=== PATIENT | female | born 1970 | race American Indian/Alaskan Native ===

== ENCOUNTER 2016-06-10 07:53 | Outpatient (CLI) | payer MEDICAID ==
--- NOTE | 2016-06-10 10:43 | Cat Scan Report ---
CT SINUSES WITHOUT CONTRAST INDICATION: Nasal congestion. COMPARISON: None similar at this institution. FINDINGS: Noncontrast sinus CT demonstrates hypoplastic frontal sinuses, right more the left. Clear remainder aerated paranasal sinuses and mastoid air cells. Slight nasal septal deviation. Soft tissue bridging of the right middle and inferior turbinates incidentally noted as on coronal image 27. Normal eye globes. Unremarkable imaged intracranial appearance. Mild cervical spondylosis. CONCLUSION: No sinusitis with few incidental findings, as above. Thank you for the opportunity to participate in this patient's care.
== END 2016-06-10 07:54 | disposition home or self-care (01) ==
LOC: CT 07:53
PROVIDERS: ATTEND Otolaryngology
DX: R09.81 Nasal congestion (principal); J34.2 Deviated nasal septum; M47.892 Other spondylosis, cervical region
CPT/HCPCS: 70486

== ENCOUNTER 2018-05-26 11:22 | Observation (INO) | payer MEDICAID ==
[2018-05-22 10:38] LABS: Basophils % (Auto) 0.8 % (0.0-1.8); Eosinophils % (Auto) 0.3 % (0.0-4.3); Hematocrit 37.6 % (30.3-42.9); Hemoglobin 13.1 gm/dl (10.1-14.3); Lymphocytes # (Auto) 1.8 K/mm3 (1.2-5.4); Lymphocytes % (Auto) 30.8 % (13.4-35.0); Mean Corpuscular HGB Conc 35 % (30-34); Mean Corpuscular Volume 89 fl (79-97); Monocytes # (Auto) 0.5 K/mm3 (0.0-0.8); Monocytes % (Auto) 8.2 % (0.0-7.3); Platelet Count 226 K/mm3 (140-440); Red Blood Count 4.22 M/mm3 (3.65-5.03); Red Cell Distribution Width 13.6 % (13.2-15.2)
--- NOTE | 2018-05-22 11:51 | Anesthesia Consultation ---
Anesthesia Consult and Med Hx Date of service: 05/22/18 - Airway Anesthetic Teeth Evaluation: Good ROM Head & Neck: Adequate Mental/Hyoid Distance: Adequate Mallampati Class: Class II Intubation Access Assessment: Probably Good - Pulmonary Exam CTA: Yes - Cardiac Exam Cardiac Exam: RRR - Pre-Operative Health Status ASA Pre-Surgery Classification: ASA2 Proposed Anesthetic Plan: General Nerve Block: TAP - Pulmonary Hx Smoking: No Hx Asthma: Yes (no inhaler use in 2yrs) Hx Sleep Apnea: Yes (s/p septoplasty) - Cardiovascular System Hx Hypertension: No Hx Heart Attack/AMI: No Hx Percutaneous Transluminal Coronary Angioplasty (PTCA): No Hx Cardia Arrhythmia: Yes (palpitations with hypokalemia) Hx Pacemaker: No Hx Internal Defibrillator: No - Central Nervous System Hx Seizures: No CVA: No - Gastrointestinal Hx Gastroesophageal Reflux Disease: No - Endocrine Hx 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 Potassium and magnesium infusions scheduled for 3/4 and 3/5 prior to surgery. Will check electrolytes DOS. Consented for preop TAP block.
[~2018-05-26 11:22] MED LIST: LACTATED RINGERS 1,000 ML IV SCH; MARCAINE 0.25% INFILTRATI ONE; NEURONTIN PO NR; SUBLIMAZE IV PRN
--- NOTE | 2018-05-26 12:07 | History and Physical Report ---
History of Present Illness Date of examination: 05/26/18 Chief complaint: Symptomatic uterine fibroids History of present illness: Pt is a 48yo BF LMP 03/12/2017 presented for surgical evaluation and treatment of symptomatic uterine fibroids due to pelvic pain. Pelvic ultrasound showed the uterus measures 9.7 x 3.5 x 5 cm with several fibroids. An endometrial biopsy was unable to be obtained due to a previous history of endometrial ablation. She is therefore scheduled for a Robotic-Assisted Total Hysterectomy with ovarian conservation. Past History Past Medical History: asthma, renal disease, other (Gitelman's synrome) Past Surgical History: [employer]/uterine surgery (endometrial ablation), section (x2), other (bilateral tubal ligation; septoplasty; port placement in the right chest) [employer] History: fibroids Family/Genetic History: none Social history: no significant social history, single Medications and Allergies Allergies Allergy/AdvReac Type Severity Reaction Status Date / Time latex Allergy Swelling Verified 05/21/18 17:11 Home Medications Medication Instructions Recorded Confirmed Last Taken Type Potassium Chloride [Klor-Con M20] 40 meq PO BID 03/20/16 05/21/18 05/26/18 07:30 History Spironolactone 75 mg PO BID 05/21/18 05/21/18 05/26/18 07:30 History Celecoxib 200 mg PO DAILY 05/22/18 05/22/18 05/25/18 History HYDROcodone/ACETAMINOPHEN 1 tab PO Q6H PRN 05/22/18 05/22/18 05/25/18 History [Hydrocodone-Acetamin 5-325 mg] Prenat Vit 17/Iron/Folic/Om3,6 1 each PO DAILY 05/22/18 05/22/18 05/25/18 History [Elite-Ob 400 Capsule] Active Meds: Active Medications Celecoxib (Celebrex) 200 mg PO PREOP NR Stop: 06/26/18 23:59 Fentanyl (Sublimaze) 100 mcg IV ONCE PRN PRN Reason: sedation for TAP block Gabapentin (Neurontin) 300 mg PO PREOP NR Stop: 06/26/18 23:59 Lactated Ringer's (Lactated Ringers) 1,000 mls @ 100 mls/hr IV DIRECT BIJU Midazolam HCl (Versed) 2 mg IV PREOP NR Stop: 05/26/18 23:00 Review of Systems All systems: negative - Vital Signs Vital signs: Vital Signs Temp Pulse Resp BP Pulse Ox 99.1 F 90 18 101/69 96 05/22/18 10:15 05/22/18 10:15 05/22/18 10:15 05/22/18 10:15 05/22/18 10:15 Temp Pulse Resp BP Pulse Ox 99.1 F 90 18 101/69 96 05/22/18 10:15 05/22/18 10:15 05/22/18 10:15 05/22/18 10:15 05/22/18 10:15 - Physical Exam Breasts: Positive: deferred Cardiovascular: Regular rate Lungs: Positive: Clear to auscultation Abdomen: Positive: normal appearance Genitourinary (Female): Positive: normal external genitalia Vagina: Positive: normal moisture Uterus: Positive: enlarged Extremities: Positive: normal Results Result Diagrams: 05/22/18 10:05 05/26/18 12:15 All other labs normal. Ultrasound: report reviewed Assessment and Plan - Patient Problems (1) Uterine fibroid Onset Date: 05/26/18 Current Visit: Yes Status: Acute Qualifiers: Uterine leiomyoma location: intramural, submucous, and subserous Qualified Code(s): D25.1 - Intramural leiomyoma of uterus; D25.0 - Submucous leiomyoma of uterus; D25.2 - Subserosal leiomyoma of uterus Plan to address problem: A: Symptomatic uterine fibroids Pelvic pain Gitelman's syndrome P: We will admit for a Robotic-Assisted Total Hysterectomy with Bilateral salpingectomy Will monitor potassium and magnesium levels (2) Pelvic pain Onset Date: 05/26/18 Current Visit: Yes Status: Acute (3) Gitelman syndrome Onset Date: 05/26/18 Current Visit: Yes Status: Chronic
[2018-05-26 12:34] LABS: BUN/Creatinine Ratio 20; Blood Urea Nitrogen 10 mg/dL (7-17); Calcium 8.8 mg/dL (8.4-10.2); Hemolysis Index 88
[2018-05-26] MEDS: VERSED IV NR ×2 (12:58→13:05)
[2018-05-26] MEDS ORDERED: ANCEF/STERILE WATER 2 GM/20 ML 2 GM/20 ML SYRINGE IV SCH (13:00)
[2018-05-26] MEDS ORDERED: ZOFRAN IV PRN ×2 (13:20→16:05)
[2018-05-26] MEDS ORDERED: SUBLIMAZE IV PRN (13:20)
--- NOTE | 2018-05-26 13:22 | Anesthesia Day of Surgery ---
Anesthesia Day of Surgery - Day of Surgery Patient Examined: Yes Patient H&P Reviewed: Yes Patient is NPO: Yes
[2018-05-26] MEDS ORDERED: DIPRIVAN 10 MG/ML IV ONE (14:03)
[2018-05-26] MEDS ORDERED: SUBLIMAZE ONE (14:06)
[2018-05-26] MEDS ORDERED: DECADRON ONE (14:07)
[2018-05-26] MEDS ORDERED: ZEMURON IV ONE ×2 (14:07→16:10)
[2018-05-26] MEDS ORDERED: ZOFRAN ONE (14:07)
[2018-05-26] MEDS ORDERED: XYLOCAINE MPF 2% ONE (14:07)
[2018-05-26] MEDS ORDERED: NEOSPORIN GU IR ONE ×2 (14:51→15:35)
[2018-05-26] MEDS ORDERED: NACL 0.9% IR ONE (15:35)
[2018-05-26] MEDS ORDERED: NARCAN 0.4 MG/1 ML IV PRN (16:05)
[2018-05-26] MEDS ORDERED: PERCOCET 5/325 PO PRN (16:05)
[2018-05-26] MEDS ORDERED: TYLENOL PO PRN (16:05)
[2018-05-26] MEDS ORDERED: MILK OF MAGNESIA PO PRN (16:05)
[2018-05-26] MEDS ORDERED: ROBINUL ONE (16:10)
[2018-05-26] MEDS ORDERED: BLOXIVERZ ONE (16:10)
[2018-05-26] MEDS ORDERED: BREVIBLOC IV ONE (16:12)
[2018-05-26] MEDS: DILAUDID IV PRN ×4 (16:50→20:00)
[2018-05-26] MEDS ORDERED: DILAUDID ONE (16:51)
[2018-05-26] MEDS ORDERED: D5W/0.45% NACL/KCL 20 MEQ 20 MEQ/1,000 ML BAG IV SCH (17:00)
[2018-05-26] MEDS ORDERED: ANCEF/NS 1 GM/50 ML 1 GM/50 ML BAG IV SCH (17:00)
--- NOTE | 2018-05-26 17:12 | Post Anesthesia Evaluation ---
- Post Anesthesia Evaluation Patient Participated: Yes Airway Patent: Yes Stable Respiratory Function: Yes Nausea/Vomiting: No Temp > 96.8F: Yes Pain Manageable: Yes Adequeate Hydration: Yes Anesthesia Complications: No Block Receding Appropriately: Yes Patient on Ventilator: No
[2018-05-26] MEDS ORDERED: KLOR-CON 8 PO SCH (18:00)
[2018-05-26] MEDS: TORADOL IV SCH (19:58)
[2018-05-26] MEDS: K-DUR PO SCH (22:00)
[2018-05-26] MEDS: COLACE PO SCH (22:00)
[2018-05-26] MEDS: ALDACTONE PO SCH (22:00)
[2018-05-26] MEDS: ANCEF/NS 1 GM/50 ML 1 GM/50 ML BAG IV SCH (22:40)
[2018-05-26] MEDS: NORCO 5/325 PO PRN (23:41)
[2018-05-27] MEDS: TORADOL IV SCH (01:42)
[2018-05-27] MEDS ORDERED: MAGNESIUM SULFATE 1 GM in NACL 0.9% 50 ML IV ONE (03:17)
[2018-05-27] MEDS ORDERED: REGLAN IV PRN (03:18)
[2018-05-27] MEDS ORDERED: MAGNESIUM SULFATE 4GM/100ML 4 GM/100 ML BAG IV ONE (03:32)
[2018-05-27] MEDS ORDERED: MAGNESIUM SULFATE 40GM/1000ML 40 GM/1,000 ML BAG IV SCH (04:00)
[2018-05-27] MEDS: ANCEF/NS 1 GM/50 ML 1 GM/50 ML BAG IV SCH (07:05)
[2018-05-27] MEDS: NORCO 5/325 PO PRN ×3 (07:06→15:09)
[2018-05-27 08:01] LABS: Hemoglobin 12.9 gm/dl (10.1-14.3)
[2018-05-27 08:02] LABS: Hematocrit 38.6 % (30.3-42.9)
--- NOTE | 2018-05-27 09:22 | Progress Note ---
Assessment and Plan - Patient Problems (1) Uterine fibroid Onset Date: 05/26/18 Current Visit: Yes Status: Resolved Qualifiers: Uterine leiomyoma location: intramural, submucous, and subserous Qualified Code(s): D25.1 - Intramural leiomyoma of uterus; D25.0 - Submucous leiomyoma of uterus; D25.2 - Subserosal leiomyoma of uterus (2) Pelvic pain Onset Date: 05/26/18 Current Visit: Yes Status: Resolved (3) Gitelman syndrome Onset Date: 05/26/18 Current Visit: Yes Status: Chronic (4) S/P robot-assisted surgical procedure Onset Date: 05/27/18 Current Visit: Yes Status: Resolved Plan to address problem: A: S/P RATH - POD #1 Doing well Gitelman's syndrome - stable P: May go home today. Subjective - Subjective Date of service: 05/27/18 Principal diagnosis: s/p RATH - POD #1 Interval history: Pt is feeling well without complaints. She is tolerating a liquid diet without nausea or vomiting, ambulating and voiding without difficulty. Patient reports: appetite normal, voiding normally, pain well controlled, ambulating normally, no dizzy ambulation, no flatus, no nauseated Objective - Vital Signs Latest vital signs: Vital Signs Temp Pulse Resp BP BP Pulse Ox 05/27/18 08:31 99.2 F 79 18 117/62 98 05/27/18 03:49 91 H 115/67 96 05/27/18 00:00 98.4 F 96 H 20 112/61 99 05/26/18 23:33 97 H 99 05/26/18 20:10 98.0 F 100 H 20 122/71 100 05/26/18 19:51 80 100 05/26/18 19:49 95 H 100 05/26/18 19:48 97 H 122/71 100 05/26/18 18:00 97.9 F 80 16 137/61 97 05/26/18 17:55 14 05/26/18 17:45 83 15 138/69 97 05/26/18 17:44 14 05/26/18 17:30 82 12 131/73 95 05/26/18 17:25 15 05/26/18 17:17 21 05/26/18 17:15 81 14 140/78 99 05/26/18 17:14 18 05/26/18 17:00 87 18 135/78 98 05/26/18 16:50 18 05/26/18 16:45 98 H 25 H 135/78 96 05/26/18 16:35 96 H 17 134/80 100 05/26/18 16:30 100 H 17 137/76 100 05/26/18 16:25 97.1 F L 93 H 16 137/81 100 05/26/18 14:15 93 H 16 117/69 99 05/26/18 14:00 94 H 14 108/69 99 05/26/18 13:45 90 16 108/68 99 05/26/18 13:30 99 H 16 103/59 99 05/26/18 13:29 16 05/26/18 13:25 99 H 14 109/63 99 05/26/18 13:20 100 H 16 108/55 99 05/26/18 13:15 99 H 16 117/65 98 05/26/18 13:10 99 H 16 122/69 98 05/26/18 13:05 94 H 12 108/68 98 05/26/18 13:00 93 H 14 107/61 99 05/26/18 12:55 96 H 16 107/61 100 05/26/18 12:00 98.1 F 81 16 103/64 100 05/26/18 11:50 98.1 F 81 16 103/64 100 Intake and Output 05/26/18 05/27/18 05/27/18 22:59 06:59 14:59 Intake Total 200 170 120 Output Total 340 1100 Balance -140 -930 120 Intake: IV 200 50 ANCEF/NS 1 GM/50 ML 1 gm 50 In 50 ml @ 100 mls/hr IV Q8H [facility] Rx#:[id number] Oral 120 Intake, Free Water 120 Output: Urine 340 1100 Uretheral (Cano) 120 Void 1100 Other: Total, Intake Amount 120 Total, Output Amount 700 Voiding Method Indwelling Catheter - Exam Breasts: Present: deferred Abdomen: Present: normal appearance, soft, normal bowel sounds Extremities: Present: normal Incision: Present: normal, dry, intact - Labs Labs: Abnormal lab results 05/26/18 05/27/18 Range/Units 12:15 01:13 Creatinine 0.5 L (0.7-1.2) mg/dL Magnesium 1.40 L (1.7-2.3) mg/dL Laboratory Tests 05/22/18 05/26/18 05/26/18 10:05 12:15 12:15 WBC 5.7 RBC 4.22 Hgb 13.1 Hct 37.6 MCV 89 MCH 31 MCHC 35 H RDW 13.6 Plt Count 226 Lymph % (Auto) 30.8 Smith % (Auto) 8.2 H Eos % (Auto) 0.3 Baso % (Auto) 0.8 Lymph # 1.8 Smith # 0.5 Eos # 0.0 Baso # 0.0 Seg Neutrophils % 59.9 Seg Neutrophils # 3.4 Sodium 138 Potassium 5.0 Chloride 103.2 Carbon Dioxide 25 Anion Gap 15 BUN 10 Creatinine 0.5 L Estimated GFR > 60 BUN/Creatinine Ratio 20 Glucose 83 Calcium 8.8 Magnesium 2.30 Blood Type B POSITIVE Antibody Screen Negative 05/26/18 05/27/18 05/27/18 17:00 01:13 06:10 WBC RBC Hgb 12.9 Hct 38.6 MCV MCH MCHC RDW Plt Count Lymph % (Auto) Smith % (Auto) Eos % (Auto) Baso % (Auto) Lymph # Smith # Eos # Baso # Seg Neutrophils % Seg Neutrophils # Sodium Potassium 3.6 D 4.0 Chloride Carbon Dioxide Anion Gap BUN Creatinine Estimated GFR BUN/Creatinine Ratio Glucose Calcium Magnesium 2.00 1.40 L Blood Type Antibody Screen 05/27/18 06:10 WBC RBC Hgb Hct MCV MCH MCHC RDW Plt Count Lymph % (Auto) Smith % (Auto) Eos % (Auto) Baso % (Auto) Lymph # Smith # Eos # Baso # Seg Neutrophils % Seg Neutrophils # Sodium Potassium 4.0 Chloride Carbon Dioxide Anion Gap BUN Creatinine Estimated GFR BUN/Creatinine Ratio Glucose Calcium Magnesium 1.80 Blood Type Antibody Screen
--- NOTE | 2018-05-27 09:48 | Discharge Summary ---
Providers - Providers Date of Admission: 05/26/18 16:05 Date of discharge: 05/27/18 Attending physician: PREMA ANGELO Primary care physician: FERMIN BATISTA Hospitalization Reason for admission: other (Symptomatic uterine fibroids; Pelvic pain) Procedure: other (Robotic Assisted Total Hysterectomy with Bilateral salpingectomy) Episiotomy: none Laceration: none Incision: normal, dry, intact Other procedures: none complications: none Discharge diagnosis: other (s/p Robotic Assisted Total Hysterectomy with Bilateral Salpingectomy; Adhesiolysis) Hospital course: Pt is a 48yo BF LMP 03/12/2017 who presented for surgical evaluation and treatment of symptomatic uterine fibroids due to pelvic pain. Pelvic ultrasound showed the uterus measured 9.7 x 3.5 x 5 cm with several fibroids. An endometrial biopsy was unable to be obtained due to a previous history of endometrial ablation. She underwent an uncomplicated Robotic-Assisted Total Hysterectomy with Bilateral salpingectomy and adhesiolysis without complications. By POD #1 she was tolerating a reg diet without nausea or vomiting, ambulating and voiding without difficulty. Her Gitelman's syndrome was managed with her PO and IV potassium and magnesium. She was therefore discharged to home on POD #1 in stable condition. Condition at discharge: Good Disposition: DC-01 TO HOME OR SELFCARE - Discharge Diagnoses (1) Uterine fibroid Status: Resolved Qualifiers: Uterine leiomyoma location: intramural, submucous, and subserous Qualified Code(s): D25.1 - Intramural leiomyoma of uterus; D25.0 - Submucous leiomyoma of uterus; D25.2 - Subserosal leiomyoma of uterus (2) Pelvic pain Status: Resolved (3) Gitelman syndrome Status: Chronic (4) S/P robot-assisted surgical procedure Status: Resolved Plan - Discharge Medications Prescriptions: HYDROcodone/ACETAMINOPHEN [Hydrocodone-Acetamin 5-325 mg] 1 tab PO Q6H PRN #30 tablet PRN Reason: Pain , Severe (7-10) Ibuprofen [Motrin] 800 mg PO Q8HR PRN #30 tablet PRN Reason: Pain, Mild (1-3) - Provider Discharge Summary Activity: routine, no sex for 6 weeks, no heavy lifting 4 weeks, no strenuous exercise Diet: routine Instructions: routine Additional instructions: [] Smoking cessation referral if applicable(refer to patient education folder for contact #) [] Refer to [facility] Booklet Call your doctor immediately for: * Fever > 100.5 * Heavy vaginal bleeding ( >1 pad per hour) * Severe persistent headache * Shortness of breath * Reddened, hot, painful area to leg or breast * Drainage or odor from incision. * Keep incision clean and dry at all times and follow doctor's instructions regarding bathing/showering - Follow up plan Follow up: FERMIN BATISTA MD [Primary Care Provider] - 7 Days PREMA ANGELO MD [Staff Physician] - 14 Days
[2018-05-27] MEDS: COLACE PO SCH (11:09)
[2018-05-27] MEDS: ALDACTONE PO SCH (11:10)
[2018-05-27] MEDS: K-DUR PO SCH ×2 (11:10→15:10)
[2018-05-27] MEDS ORDERED: FLUSH HEPARIN IV ONE (15:15)
[2018-05-27 17:21] VITALS: BP 115/67
--- NOTE | 2018-06-02 13:34 | Operative Report ---
Operative Report Operative Report: Date of procedure: 05/26/2018 Pre-operative diagnosis: 1. Pelvic pain 2. Symptomatic uterine fibroids Post-operative diagnosis: Same with extensive pelvic adhesions Procedure name(s): 1. Robotic-assisted total hysterectomy 2. Bilateral salpingectomy 3. Adhesiolysis Surgeon: Preston Costa MD Tile Setter: Jaycee Dobbs CSA Anesthesia: ROBYN Block followed by general endotracheal intubation by Dr. Moreira EBL: Less than 100 mL Findings: A 10-12 week size uterus with multiple fibroids. Normal tubes and ovaries bilaterally. Extensive pelvic adhesions from the bowel to the anterior abdominal wall. Procedure: After the patient's first correctly identified she was prepped and draped in the usual sterile fashion and placed in the dorsolithotomy position. The bladder was first catheterized using Cano catheter and the speculum was placed in the vagina and the anterior lip of the cervix was grasped using a single-tooth tenaculum, and the medium Vesicare cup was placed. The tenaculum and speculum was then removed from the vagina and attention was then turned to the abdomen. The skin knife was used to make a small incision approximately 5 cm above the umbilicus through which a 12 mm trocar was placed under direct visualization. After adequate amount of abdominal insufflation visualization of the pelvic organs found the uterus to be enlarged and the tubes and ovaries were found to be normal bilaterally. A right and left paramedian incision was made through which the 8 mm trochars were placed under direct visualization and a 5 mm trocar was placed in the right upper quadrant. The patient was then placed in steep Trendelenburg positioning and the robot was docked on the patient's left side. After all the robotic ports were connected and adequate functioning of the robotic arms were tested the surgeon then proceeded to the console to begin the hysterectomy. First the bowel adhesions were taken down using both sharp and blunt dissection. Then the left round ligament was grasped, cauterized and cut, the left utero- ovarian ligaments were grasped, cauterized and cut, and the left fallopian tube also grasped, cauterized and cut along the mesosalpinx, thus freeing the left ovary from the left uterine sidewall. The same procedure was performed on the right. The right round ligament was grasped, cauterized and cut, the right utero-ovarian ligaments were grasped, cauterized and cut, and the right fallopian tube also grasped, cauterized and cut along the mesosalpinx, thus freeing the right ovary from the right uterine sidewall. The bladder flap was taken down anteriorly and the uterine vessels were grasped, cauterized and cut bilaterally. The cardinal ligaments were sequentially grasped, cauterized and cut down to the level of the uterosacral ligaments. At this time the posterior colpotomy was performed over the Vcare cup, and the cervix was circumscribed beginning posteriorly and meeting anteriorly until the cervix was freed. The cervix and uterus was then removed through the vagina and sent to pathology. The vaginal cuff was then closed using 2-0 Vloc suture in a running fashion. Irrigation was then performed and after good hemostasis was achieved the procedure was considered complete. The Tisseel sealant was then sprayed across the vaginal cuff site, and after excellent hemostasis was assured Interceed was placed across the vaginal cuff site. All instruments were then removed from the abdominal cavity. And each incision was closed using 0 Vicryl suture in a [id number] configuration on the fascia followed by 4-0 Monocryl suture in a sub-cuticular fashion on the skin. Each incision was also infiltrated using 0.5% Marcaine solution. The vaginal pack was removed. The patient tolerated the procedure well and was transported to the recovery room in stable condition.
== END 2018-05-27 18:19 | disposition home or self-care (01) ==
LOC: OR 11:22 → OB 16:05
PROVIDERS: ADMIT Obstetrics & Gynecology; ATTEND Obstetrics & Gynecology
DX: D25.9 Leiomyoma of uterus, unspecified (principal); N25.89 Other disorders resulting from impaired renal tubular function; J45.909 Unspecified asthma, uncomplicated; Z98.890 Other specified postprocedural states
CPT/HCPCS: 36415; 58552; 64450; 80048; 83735; 84132; 85014; 85018; 85025; 86850; 86900; 86901; 88300; 88305; 88307; 96365; 96366; 96375; 96376; A4217; C1765; C9250; G0378; J0690; J1100; J1170; J1642; J1885; J2250; J2405; J2704; J2710; J3010; J3475; J7120; S2900; 88302